=== PATIENT | male | born 1960 | race Caucasian/White ===

== ENCOUNTER 2023-02-22 10:00 | Emergency (ER) | payer MEDICARE, OTHER ==
--- NOTE | 2023-02-22 11:06 | EDPHYS ---
Physician Documentation [facility] Name: Yon Pineda Age: 62 yrs Sex: Male : 1960 Arrival Date: 02/22/2023 Time: 10:00 Bed 12 Private MD: John Naranjo ED Physician Daniel Mendez HPI: 02/22 11:01 This 62 yrs old Male presents to ER via Ambulatory with complaints of criss Drainage From Eye, Drainage From Ear, Cough. 11:01 to both eyes. criss Historical: - Allergies: 10:33 No Known Allergies; aa5 - PMHx: 10:33 heart disease; Arthritis; aa5 - PSHx: 10:33 aba knee replacement; C7 spine sx; aba hip replacement; aa5 10:34 triple heart bypass; aa5 - Immunization history:: Adult Immunizations unknown. - Social history:: Smoking status: Patient reports the use of cigarette tobacco products, chewing tobacco. ROS: 11:01 Constitutional: Negative for fever, chills, and weight loss, Eyes: Negative for injury, criss pain, redness, and discharge, Neck: Negative for injury, pain, and swelling, Cardiovascular: Negative for chest pain, palpitations, and edema, Abdomen/GI: Negative for abdominal pain, nausea, vomiting, diarrhea, and constipation, Back: Negative for injury and pain, : Negative for injury, bleeding, discharge, and swelling, MS/Extremity: Negative for injury and deformity, Skin: Negative for injury, rash, and discoloration, Neuro: Negative for headache, weakness, numbness, tingling, and seizure, Psych: Negative for depression, anxiety, suicide ideation, homicidal ideation, and hallucinations, Allergy/Immunology: Negative for hives, rash, and allergies, Endocrine: Negative for neck swelling, polydipsia, polyuria, polyphagia, and marked weight changes. 11:01 ENT: Positive for ear pain. 11:01 Respiratory: Positive for cough, with no reported sputum. Exam: 11:01 Constitutional: This is a well developed, well nourished patient who is awake, alert, criss and in no acute distress. Head/Face: Normocephalic, atraumatic. Eyes: Pupils equal round and reactive to light, extra-ocular motions intact. Lids and lashes normal. Conjunctiva and sclera are non-icteric and not injected. Cornea within normal limits. Periorbital areas with no swelling, redness, or edema. Neck: Trachea midline, no thyromegaly or masses palpated, and no cervical lymphadenopathy. Supple, full range of motion without nuchal rigidity, or vertebral point tenderness. No Meningismus. Chest/axilla: Normal chest wall appearance and motion. Nontender with no deformity. No lesions are appreciated. Cardiovascular: Regular rate and rhythm with a normal S1 and S2. No gallops, murmurs, or rubs. Normal PMI, no JVD. No pulse deficits. Respiratory: Lungs have equal breath sounds bilaterally, clear to auscultation and percussion. No rales, rhonchi or wheezes noted. No increased work of breathing, no retractions or nasal flaring. 11:01 ENT: Ear canal(s): erythema, swelling, that is moderate, bilaterally, TM's: erythema, Posterior pharynx: is normal, no acute changes. Vital Signs: 10:31 BP 123 / 85; Pulse 85; Resp 18 S; Temp 98.6(O); Pulse Ox 98% on R/A; Weight 93.89 kg aa5 (R); Height 5 ft. 6 in. (R); 11:59 BP 123 / 84; Pulse 84; Resp 15; Pulse Ox 97% ; jl7 10:31 Body Mass Index 33.41 (93.89 kg, 167.64 cm) aa5 MDM: 10:09 Patient medically screened. criss 11:03 Differential diagnosis: Infectious conjunctivitis in both eyes. Antibiotic criss administration: Not indicated. Differential Diagnosis: Influenza Upper Respiratory Infection Sinusitis Pharyngitis. Immunization status: Influenza vaccine: within last 5 years. Data reviewed: vital signs, nurses notes. Consideration of Admission/Observation Escalation of care including admission/observation considered. I considered the following discharge prescriptions or medication management in the emergency department Medications were administered in the Emergency Department. See MAR. Test considered but Not performed: Labs: no labs. X-ray: no cxr. Care significantly affected by the following chronic conditions: Hypertension, cad. Administered Medications: 11:54 Not Given (unavailable at this facility): CIPRODEX Otic Drops 4 drops Otic in both ears jl7 once 11:54 Drug: Rocephin (cefTRIAXone) IM 1 grams Route: IM; Site: right ventrogluteal; jl7 11:59 Follow up: Response: Medication administered at discharge. jl7 11:54 Drug: Amoxicillin-Clavulanate PO 875 mg Route: PO; jl7 11:59 Follow up: Response: Medication administered at discharge. jl7 Disposition Summary: 02/22/23 11:05 Discharge Ordered Location: Home criss Problem: new criss Symptoms: have improved criss Condition: Stable criss Diagnosis - Acute serous otitis media, bilateral criss - Otitis externa in other diseases classified elsewhere, bilateral criss - Acute upper respiratory infection, unspecified criss Followup: criss - With: John Naranjo DO - When: 2 - 3 days - Reason: Recheck today's complaints, Continuance of care, Re-evaluation by your physician Followup: criss - With: Linda Cox MD - When: 2 - 3 days - Reason: Recheck today's complaints, Continuance of care, Re-evaluation by your physician Discharge Instructions: - Discharge Summary Sheet criss - Otitis Media, Adult criss - Otitis Externa criss - Upper Respiratory Infection, Adult criss - Cool Mist Vaporizer criss - Otitis Externa, [id number] criss - Otitis Media, Adult, [id number] criss - Upper Respiratory Infection, Adult, [id number] cirss - Cough, Adult criss Forms: - Medication Reconciliation Form [facility] - Thank You Letter [facility] - Antibiotic Education [facility] - Prescription Opioid Use [facility] Prescriptions: - Augmentin 875-125 mg Oral Tablet - take 1 tablet by ORAL route every 12 hours for 10 days; 20 tablet; Refills: 0, [facility] Product Selection Permitted - Cipro HC 0.2-1 % Otic drops,suspension - instill 3 drops by OTIC route every 12 hours for 7 days; 10 milliliter; criss Refills: 0, Product Selection Permitted - Medrol (Chris) 4 mg Oral Tablets, Dose Pack - take 1 tablet by ORAL route as directed - follow package instructions; 1 criss packet; Refills: 0, Product Selection Permitted - Guaifenesin AC 10-100 mg/5 mL Oral Liquid - take 10 milliliters by ORAL route every 6 hours As needed; 180 milliliter; criss Refills: 0, Product Selection Permitted Signatures: Daniel Mendez MD MD cha Calderon, Audri, RN RN aa5 Wang, Jahala, RN RN jl7
--- NOTE | 2023-02-22 11:06 | ER ---
Nurse's Notes [facility] Name: Yon Pineda Age: 62 yrs Sex: Male : 1960 Arrival Date: 02/22/2023 Time: 10:00 Bed 12 Private MD: John Naranjo Diagnosis: Acute serous otitis media, bilateral;Otitis externa in other diseases classified elsewhere, bilateral;Acute upper respiratory infection, unspecified Presentation: 02/22 10:31 Chief complaint: Patient states: "I've been dealing with ear drainage for about 2 aa5 months now but now I have a cough". pt also reports watery eyes and congestion. Coronavirus screen: congestion, cough unrelated to allergies. Ebola Screen: Patient denies travel to an Ebola-affected area in the 21 days before illness onset. Initial Sepsis Screen: Does the patient meet any 2 criteria? No. Patient's initial sepsis screen is negative. Does the patient have a suspected source of infection? No. Patient's initial sepsis screen is negative. Risk Assessment: Do you want to hurt yourself or someone else? Patient reports no desire to harm self or others. Onset of symptoms was 2022. 10:31 Acuity: BRIDGET 4 aa5 10:31 Method Of Arrival: Ambulatory aa5 Historical: - Allergies: 10:33 No Known Allergies; aa5 - PMHx: 10:33 heart disease; Arthritis; aa5 - PSHx: 10:33 aba knee replacement; C7 spine sx; aba hip replacement; aa5 10:34 triple heart bypass; aa5 - Immunization history:: Adult Immunizations unknown. - Social history:: Smoking status: Patient reports the use of cigarette tobacco products, chewing tobacco. Vital Signs: 10:31 BP 123 / 85; Pulse 85; Resp 18 S; Temp 98.6(O); Pulse Ox 98% on R/A; Weight 93.89 kg aa5 (R); Height 5 ft. 6 in. (R); 11:59 BP 123 / 84; Pulse 84; Resp 15; Pulse Ox 97% ; jl7 10:31 Body Mass Index 33.41 (93.89 kg, 167.64 cm) aa5 ED Course: 10:08 Patient arrived in ED. am2 10:08 John Naranjo DO is Private Physician. am2 10:09 Daniel Mendez MD is Attending Physician. criss 10:31 Arm band placed on. aa5 10:33 Triage completed. aa5 11:04 John Naranjo DO is Referral Physician. criss 11:05 Linda Cox MD is Referral Physician. [facility] 11:54 No provider procedures requiring assistance completed. Patient did not have IV access jl7 during this emergency room visit. Administered Medications: 11:54 Not Given (unavailable at this facility): CIPRODEX Otic Drops 4 drops Otic in both ears jl7 once 11:54 Drug: Rocephin (cefTRIAXone) IM 1 grams Route: IM; Site: right ventrogluteal; jl7 11:59 Follow up: Response: Medication administered at discharge. jl7 11:54 Drug: Amoxicillin-Clavulanate PO 875 mg Route: PO; jl7 11:59 Follow up: Response: Medication administered at discharge. jl7 Medication: 11:55 VIS not applicable for this client. jl7 Outcome: 11:05 Discharge ordered by . [facility] 11:54 Discharged to home ambulatory. jl7 11:54 Condition: stable 11:54 Discharge instructions given to patient, Instructed on discharge instructions, follow up and referral plans. medication usage, Demonstrated understanding of instructions, follow-up care, medications, Prescriptions given X 4. 12:00 Patient left the ED. jl7 Signatures: Daniel Mendez MD MD cha Calderon, Audri, RN RN aa5 Esperanza Wang RN RN jl7 Ghazala Bernstein am2
[2023-02-22] MEDS ORDERED: AMOX/K CLAV 875 MG TAB ONE (11:35)
[2023-02-22] MEDS ORDERED: LIDOCAINE 1% MPF 2 ML AMPULE ONE (11:35)
[2023-02-22] MEDS ORDERED: CEFTRIAXONE 1000 MG/VIAL ONE (11:35)
[2023-02-22 12:04] VITALS: TEMP 98.6
[2023-02-22 12:06] VITALS: BP 123/84; O2SAT 97
== END 2023-02-22 12:00 | disposition home or self-care (01) ==
LOC: ER 10:00
DX: H65.03 Acute serous otitis media, bilateral (principal); H62.43 Otitis externa in other diseases classified elsewhere, bilateral; J06.9 Acute upper respiratory infection, unspecified; F17.210 Nicotine dependence, cigarettes, uncomplicated; F17.220 Nicotine dependence, chewing tobacco, uncomplicated
CPT/HCPCS: 96372; 99284; J0696